=== PATIENT | female | born 1970 | race Caucasian/White ===

== ENCOUNTER → 2017-10-19 | Outpatient (CLI) | payer MEDICARE ==
[~2017-10-19] MED LIST: BUPR300T54 PO; DICY20TA11 PO; GABA-531 PO; PANT40TA25 PO; QUET50TA55 PO; SERT100T12 PO; TOPI100T37 PO
== END | disposition home or self-care (01) ==
LOC: RAH 12:50
PROVIDERS: ATTEND Internal Medicine
DX: R10.813 Right lower quadrant abdominal tenderness (principal); Z98.84 Bariatric surgery status
CPT/HCPCS: 74176

== ENCOUNTER 2017-11-01 10:35 | Day surgery (SDC) | payer MEDICARE ==
[~2017-11-01] VITALS: Ht 170.2 cm; Wt 96.6 kg
[~2017-11-01 10:35] MED LIST changes: +SODIUM CHLORIDE 0.9% 1000ML 1,000 ML IV ONE
[2017-11-01 11:07] VITALS: BP 131/77
[2017-11-01] MEDS ORDERED: PROPOFOL 10 MG/ML 20ML VIAL IV ONE (12:22)
[2017-11-01] MEDS ORDERED: SIMETHICONE 40 MG/0.6 ML ML ONE (12:22)
[2017-11-01 12:34] VITALS: BP 118/70
[2017-11-01 12:41] VITALS: BP 123/77
[2017-11-01 12:48] VITALS: BP 128/76
[2017-11-01 12:53] VITALS: BP 147/93
[2017-11-01 12:58] VITALS: BP 156/82
== END 2017-11-01 13:15 | disposition home or self-care (01) ==
LOC: ENDO 10:35 → DAH 10:35 → ENDO 13:15
PROVIDERS: ATTEND Internal Medicine Gastroenterology
DX: K29.50 Unspecified chronic gastritis without bleeding (principal); Z98.84 Bariatric surgery status; F41.9 Anxiety disorder, unspecified; F32.9 Major depressive disorder, single episode, unspecified; D64.9 Anemia, unspecified; G43.909 Migraine, unspecified, not intractable, without status migrainosus; Z90.49 Acquired absence of other specified parts of digestive tract; Z98.890 Other specified postprocedural states; Z79.899 Other long term (current) drug therapy; Z68.34 Body mass index [BMI] 34.0-34.9, adult; Z88.0 Allergy status to penicillin; Z88.8 Allergy status to other drugs, medicaments and biological substances
CPT/HCPCS: 43259; A4606; J2704; J7030; 43231

== ENCOUNTER → 2019-10-18 | Outpatient (CLI) | payer MEDICARE ==
[~2019-10-18] MED LIST changes: +BUPR-317 PO; -BUPR300T54 PO; -SODIUM CHLORIDE 0.9% 1000ML 1,000 ML IV ONE
== END | disposition home or self-care (01) ==
LOC: RAH 08:53
PROVIDERS: ATTEND Internal Medicine
DX: J06.9 Acute upper respiratory infection, unspecified (principal); R05 Cough
CPT/HCPCS: 71046

== ENCOUNTER → 2020-08-20 | Outpatient (CLI) | payer MEDICARE ==
[~2020-08-20] MED LIST changes: -PANT40TA25 PO; +PANT40TA54 PO; +QUET50TA22 PO; -QUET50TA55 PO; +SERT-440 PO; -SERT100T12 PO
== END | disposition home or self-care (01) ==
LOC: OIH 14:24
PROVIDERS: ATTEND Internal Medicine
DX: M79.89 Other specified soft tissue disorders (principal); M25.531 Pain in right wrist; M65.9 Synovitis and tenosynovitis, unspecified
CPT/HCPCS: 73100